=== PATIENT | male | born 1965 | race Two or more races ===

== ENCOUNTER 2023-10-21 10:55 | Emergency (ER) | payer OTHER ==
[~2023-10-21] VITALS: Ht 170.2 cm; Wt 75.7 kg
[2023-10-21 12:50] LABS: HEMATOCRIT 42.2 % (39.0-48.0); HEMOGLOBIN 14.8 g/dL (13-16.00); MEAN CELL VOLUME 87.1 fL (80.0-100.00); MEAN CORPUSCULAR HEMOGLOBIN 30.6 pg (27.00-32.0); MEAN CORPUSCULAR HGB CONC 35.1 g/dl (32.0-36.0); PLATELET COUNT 167 K/uL (150-450); RED BLOOD COUNT 4.85 M/uL (4.00-6.00); RED CELL DISTRIBUTION WIDTH 13.2 % (11.5-14.5)
[2023-10-21 13:22] LABS: CALCIUM 9.3 mg/dL (8.5-10.1); CREATININE SERUM 1.37 mg/dL (0.70-1.30); GFR 53.56; POTASSIUM 3.99 mEq/L (3.5-5.1)
[2023-10-21] MEDS ORDERED: OSEL75CA PO (13:45)
== END 2023-10-21 13:51 | disposition home or self-care (01) ==
LOC: ER 10:56
PROVIDERS: General Practice
DX: J11.1 Influenza due to unidentified influenza virus with other respiratory manifestations (principal); R07.9 Chest pain, unspecified; R05.8 Other specified cough; Z20.822 Contact with and (suspected) exposure to COVID-19